=== PATIENT | male | born 1985 | race African-American/Black ===

== ENCOUNTER 2017-01-30 09:17 | Emergency (ER) | payer OTHER ==
[~2017-01-30] VITALS: Ht 190.5 cm; Wt 86.0 kg
[2017-01-30] MEDS ORDERED: VISINE A.C300 DROP/1 BOTH EYES (09:27)
[2017-01-30] MEDS ORDERED: PROVENTIL HFA6.7 GM IH (09:28)
[2017-01-30] MEDS ORDERED: EXCEDRIN MIGRA1 EAC3 PO (09:28)
[2017-01-30] MEDS ORDERED: ZYRTEC10 M2 PO (09:28)
[2017-01-30] MEDS ORDERED: EFFEXOR XR150 MG PO (09:29)
[2017-01-30 12:17] VITALS: BP 152/84
== END 2017-01-30 12:17 ==
LOC: EME 09:17
DX: S01.81XA Laceration without foreign body of other part of head, initial encounter (principal); S01.311A Laceration without foreign body of right ear, initial encounter; X99.9XXA Assault by unspecified sharp object, initial encounter; Y92.149 Unspecified place in prison as the place of occurrence of the external cause; Z23 Encounter for immunization; J45.909 Unspecified asthma, uncomplicated